=== PATIENT | female | born 1970 | race Caucasian/White ===

== ENCOUNTER → 2016-09-16 13:09 | Outpatient (CLI) | payer SELFPAY | END | disposition home or self-care (01) | LOC: D.LABREF 13:09 | DX: J30.9 Allergic rhinitis, unspecified (principal); N39.0 Urinary tract infection, site not specified ==

== ENCOUNTER → 2016-11-08 18:18 | Outpatient (CLI) | payer MEDICARE | END | disposition home or self-care (01) | LOC: D.LABREF 18:18 | DX: R31.9 Hematuria, unspecified (principal) ==

== ENCOUNTER → 2017-06-26 09:54 | Outpatient (CLI) | payer MEDICARE | END | disposition home or self-care (01) | LOC: D.US 09:54 | DX: I12.9 Hypertensive chronic kidney disease with stage 1 through stage 4 chronic kidney disease, or unspecified chronic kidney disease (principal); N18.3 Chronic kidney disease, stage 3 (moderate); E11.22 Type 2 diabetes mellitus with diabetic chronic kidney disease; E55.9 Vitamin D deficiency, unspecified ==

== ENCOUNTER → 2017-10-27 10:03 | Outpatient (CLI) | payer OTHER | END | disposition home or self-care (01) | LOC: D.CT 10:03 | DX: R93.8 Abnormal findings on diagnostic imaging of other specified body structures (principal) ==

== ENCOUNTER → 2018-01-25 07:44 | Outpatient (CLI) | payer OTHER | END | disposition home or self-care (01) | LOC: D.CT 07:44 | DX: R10.11 Right upper quadrant pain (principal) ==

== ENCOUNTER → 2018-03-30 08:28 | Outpatient (CLI) | payer OTHER | END | disposition home or self-care (01) | LOC: D.MRI 03-01 09:00 | DX: M54.5 Low back pain (principal) ==

== ENCOUNTER → 2018-07-27 11:31 | Outpatient (CLI) | payer OTHER | END | disposition home or self-care (01) | LOC: D.NM 06-28 11:30 | PROVIDERS: ATTEND Internal Medicine Gastroenterology | DX: K92.9 Disease of digestive system, unspecified (principal) ==

== ENCOUNTER → 2019-03-21 11:50 | Outpatient (CLI) | payer OTHER | END | disposition home or self-care (01) | LOC: D.RAD 11:50 | PROVIDERS: ATTEND Family Medicine | DX: Z01.89 Encounter for other specified special examinations (principal) ==

== ENCOUNTER 2019-12-06 15:30 | Outpatient (CLI) | payer OTHER | END 2019-12-06 23:59 | disposition home or self-care (01) | LOC: D.MAMMO 15:30 | PROVIDERS: ATTEND Family Medicine | DX: Z12.31 Encounter for screening mammogram for malignant neoplasm of breast (principal) ==

== ENCOUNTER → 2020-06-22 09:11 | Outpatient (CLI) | payer MEDICARE | END | disposition home or self-care (01) | LOC: D.MRI 09:00 | DX: M43.10 Spondylolisthesis, site unspecified (principal) ==

== ENCOUNTER → 2020-07-23 08:35 | Outpatient (CLI) | payer MEDICARE | END | disposition home or self-care (01) | LOC: D.MRI 08:35 | PROVIDERS: ATTEND Clinical Nurse Specialist Family Health | DX: M25.512 Pain in left shoulder (principal) ==